=== PATIENT | male | born 1980 | race Caucasian/White ===

== ENCOUNTER 2016-08-16 16:49 | Emergency (ER) | payer SELFPAY ==
--- NOTE | 2016-08-16 16:57 | ER Document Report ---
ED Medical Screen (RME) - General Stated Complaint: INJURY TO CHEST MUSCLE Mode of Arrival: Ambulatory Information source: Patient Notes: Patient presents to the emergency department right-sided chest wall pain. Reports he was bench pressing weights and thinks he tore muscle. He reports he' s done this in the past. I have greeted and performed a rapid initial assessment of this patient. A comprehensive ED assessment and evaluation of the patient, analysis of test results and completion of the medical decision making process will be conducted by additional ED providers. TRAVEL OUTSIDE OF THE [place] IN LAST 30 DAYS: No - Related Data Allergies/Adverse Reactions: Penicillins Allergy (Verified 06/01/16 17:51) Past Medical History - Past Medical History Cardiac Medical History: Reports: Hx Hypertension GI Medical History: Reports: Hx Diverticulitis Past Surgical History: Reports: Hx Bowel Surgery - Colectomy, Hx Colostomy - Immunizations Hx Diphtheria, Pertussis, Tetanus Vaccination: Yes - 2014 Physical Exam - Vital signs Vitals: Temp Pulse Resp BP Pulse Ox 97.6 F 82 20 169/104 H 100 08/16/16 16:53 08/16/16 16:53 08/16/16 16:53 08/16/16 16:53 08/16/16 16:53 Course - Vital Signs Vital signs: Temp Pulse Resp BP Pulse Ox 97.6 F 82 20 169/104 H 100 08/16/16 16:53 08/16/16 16:53 08/16/16 16:53 08/16/16 16:53 08/16/16 16:53
[2016-08-16] MEDS ORDERED: KETOROLAC TROMETHAMINE 60 MG/2 ML SDV IM ONE (18:23)
[2016-08-16] MEDS ORDERED: LIDOCAINE 5% (700 MG) TRANSDERMAL ADH..PATCH TP ONE (18:23)
[2016-08-16] MEDS ORDERED: HYDROCODONE/ACETAMINOPHEN 5-325 MG 6 TAB/DSPK PO PRN (18:23)
[2016-08-16] MEDS ORDERED: HYDROCODONE/ACETAMINOPHEN 5-325 MG TABLET PO ONE (18:23)
--- NOTE | 2016-08-16 18:25 | ER Document Report ---
ED General - General Chief Complaint: Chest Wall Injury Stated Complaint: INJURY TO CHEST MUSCLE Mode of Arrival: Ambulatory Notes: Patient is a 36-year-old male without past medical history who presents with 2 days of severe right pectoralis pain. States this started after he was benching 305 pounds 2 days ago. 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 Has had similar symptoms in the past when performing the bench press. Describes the pain as a severe, constant pain and he has not done anything to try to improve the pain. Nothing worsens the pain other than trying to use the muscle. He has not seen his primary care physician regarding today's concerns. Denies any difficulty breathing, weakness, numbness, or difficulty moving either of the upper extremities. TRAVEL OUTSIDE OF THE [place] IN LAST 30 DAYS: No - Related Data Allergies/Adverse Reactions: Penicillins Allergy (Verified 08/16/16 16:56) Past Medical History - General Information source: Patient - Social History Smoking Status: Former Smoker Chew tobacco use (# tins/day): No Frequency of alcohol use: Occasional Drug Abuse: None Family History: Reviewed & Not Pertinent Patient has suicidal ideation: No Patient has homicidal ideation: No - Past Medical History Cardiac Medical History: Reports: Hx Hypertension Renal/ Medical History: Denies: Hx Peritoneal Dialysis GI Medical History: Reports: Hx Diverticulitis Past Surgical History: Reports: Hx Bowel Surgery - Colectomy, Hx Colostomy - Immunizations Hx Diphtheria, Pertussis, Tetanus Vaccination: Yes - 2014 Review of Systems - Review of Systems Notes: Constitutional: Negative for fever. HENT: Negative for sore throat. Eyes: Negative for visual changes. Cardiovascular: Negative for chest pain. Respiratory: Negative for shortness of breath. Gastrointestinal: Negative for abdominal pain, vomiting or diarrhea. Genitourinary: Negative for dysuria. Musculoskeletal: Negative for back pain. Skin: Negative for rash. Neurological: Negative for headaches, weakness or numbness. 10 point ROS negative except as marked above and in HPI. Physical Exam - Vital signs Vitals: Temp Pulse Resp BP Pulse Ox 97.6 F 82 20 169/104 H 100 08/16/16 16:53 08/16/16 16:53 08/16/16 16:53 08/16/16 16:53 08/16/16 16:53 Interpretation: Hypertensive Notes: PHYSICAL EXAMINATION: GENERAL: Well-appearing, well-nourished and in no acute distress. HEAD: Atraumatic, normocephalic. EYES: Pupils equal round and reactive to light, extraocular movements intact, sclera anicteric, conjunctiva are normal. ENT: nares patent, oropharynx clear without exudates. Moist mucous membranes. NECK: Normal range of motion, supple without lymphadenopathy LUNGS: Breath sounds clear to auscultation bilaterally and equal. No wheezes rales or rhonchi. HEART: Regular rate and rhythm without murmurs. 2+ radial pulses bilaterally ABDOMEN: Soft, nontender, normoactive bowel sounds. No guarding, no rebound. No masses appreciated. Musculoskeletal: Pain on palpation of the right lateral pectoralis muscle. U motor and sensory exam normal in the bilateral upper extremities NEUROLOGICAL: No focal neurological deficits. Moves all extremities spontaneously and on command. PSYCH: Normal mood, normal affect. SKIN: Warm, Dry, normal turgor, no rashes or lesions noted. Course - Re-evaluation Re-evalutation: 08/16/16 18:23 Presentation is most consistent with a right pectoral major tear based on exam and history. Patient is neurovascularly intact. 2+ radial pulses bilaterally. Lung sounds clear bilaterally. No direct trauma to the chest to suggest pneumothorax, rib fractures, or pulmonary contusions. Patient denies any additional symptoms beyond pain localized to his lateral pectoralis major. At this time will discharge with return precautions and follow-up recommendations. Verbal discharge instructions given a the bedside and opportunity for questions given. Medication warnings reviewed. Patient is in agreement with this plan and has verbalized understanding of return precautions and the need for primary care follow-up in the next 24-72 hours. - Vital Signs Vital signs: Temp Pulse Resp BP Pulse Ox 98.1 F 78 18 155/100 H 98 08/16/16 18:50 08/16/16 18:50 08/16/16 18:50 08/16/16 18:50 08/16/16 18:50 Discharge - Discharge Clinical Impression: Strain of right pectoralis muscle Qualifiers: Encounter type: initial encounter Qualified Code(s): S29.011A - Strain of muscle and tendon of front wall of thorax, initial encounter Condition: Good Disposition: HOME, SELF-CARE Additional Instructions: Your symptoms are consistent with a strain of your right pectoral major muscle. You should continue to take anti-inflammatories such as ibuprofen 600 mg every 6 hours. Continue to apply ice to the area is much your able. Follow-up with orthopedic surgery next 1 week for discussion of further management. Please return immediately if you develop weakness, numbness, spreading redness from the area, or any other symptoms that are concerning to you. Referrals: NAN HERNANDEZ MD [ACTIVE STAFF] - Follow up in 1 week
[2016-08-16 19:06] VITALS: BP 155/100
== END 2016-08-16 18:50 | disposition home or self-care (01) ==
LOC: ER 16:49
DX: S29.011A Strain of muscle and tendon of front wall of thorax, initial encounter (principal); R07.89 Other chest pain; X50.0XXA Overexertion from strenuous movement or load, initial encounter; Y93.B9 Activity, other involving muscle strengthening exercises; Z87.891 Personal history of nicotine dependence
CPT/HCPCS: 99282; 96372; J1885

== ENCOUNTER 2016-08-17 07:55 | Emergency (ER) | payer SELFPAY ==
[2016-08-17] MEDS ORDERED: MORPHINE SULFATE 10 MG/ML INJ IM ONE (08:25)
--- NOTE | 2016-08-17 09:03 | ER Document Report ---
[id number] PAIN Mode of Arrival: Ambulatory Information source: [facility], [facility] Records Notes: 36 yr old male presents with complaints of right pectoralis muscle pain after working out yesterday. pt margarita it is torn, was seen here yesterday treated with antiinflammatories and notes symptoms have not improved. TRAVEL OUTSIDE OF THE [place] IN LAST 30 DAYS: No - HPI Onset: Yesterday Onset/Duration: Sudden Quality of pain: Sharp Severity: Moderate Pain Level: 2 Associated symptoms: Body/muscle aches Exacerbated by: Movement Relieved by: Denies Similar symptoms previously: Yes Recently seen / treated by doctor: Yes - Related Data Allergies/Adverse Reactions: Penicillins Allergy (Verified 08/17/16 08:00) Past Medical History - Social History Smoking Status: Never Smoker Cigarette use (# per day): No Chew tobacco use (# tins/day): No Smoking Education Provided: No Frequency of alcohol use: None Drug Abuse: None Family History: Reviewed & Not Pertinent Patient has suicidal ideation: No Patient has homicidal ideation: No - Past Medical History Cardiac Medical History: Reports: Hx Hypertension Renal/ Medical History: Denies: Hx Peritoneal Dialysis GI Medical History: Reports: Hx Diverticulitis Past Surgical History: Reports: Hx Bowel Surgery - Colectomy, Hx Colostomy - Immunizations Hx Diphtheria, Pertussis, Tetanus Vaccination: Yes - 2014 Review of Systems - Review of Systems Notes: REVIEW OF SYSTEMS: CONSTITUTIONAL : Denies fever, chills, or sweats. Denies recent illness. EENT: Denies eye, ear, throat, or mouth pain or symptoms. Denies nasal or sinus congestion or discharge. Denies throat, tongue, or mouth swelling or difficulty swallowing. CARDIOVASCULAR: Denies chest pain. Denies palpitations or racing or irregular heart beat. Denies ankle edema. RESPIRATORY: Denies cough, cold, or chest congestion. Denies shortness of breath, difficulty breathing, or wheezing. GASTROINTESTINAL: Denies abdominal pain or distention. Denies nausea, vomiting , or diarrhea. Denies blood in vomitus, stools, or per rectum. Denies black, tarry stools. Denies constipation. GENITOURINARY: Denies difficulty urinating, painful urination, burning, frequency, blood in urine, or discharge. MUSCULOSKELETAL: right chest wall pain SKIN: Denies rash, lesions or sores. HEMATOLOGIC : Denies easy bruising or bleeding. LYMPHATIC: Denies swollen, enlarged glands. NEUROLOGICAL: Denies confusion or altered mental status. Denies passing out or loss of consciousness. Denies dizziness or lightheadedness. Denies headache. Denies weakness or paralysis or loss of use of either side. Denies problems with gait or speech. Denies sensory loss, numbness, or tingling. Denies seizures. PSYCHIATRIC: Denies anxiety or stress. Denies depression, suicidal ideation, or homicidal ideation. ALL OTHER SYSTEMS REVIEWED AND NEGATIVE. Dictation was performed using [employer] recognition software PHYSICAL EXAMINATION: GENERAL: Well-appearing, well-nourished and in no acute distress. HEAD: Atraumatic, normocephalic. EYES: Pupils equal round and reactive to light, extraocular movements intact, sclera anicteric, conjunctiva are normal. ENT: Nares patent, oropharynx clear without exudates. Moist mucous membranes. NECK: Normal range of motion, supple without lymphadenopathy LUNGS: Breath sounds clear to auscultation bilaterally and equal. No wheezes rales or rhonchi. HEART: Regular rate and rhythm without murmurs ABDOMEN: Soft, nontender, nondistended abdomen. No guarding, no rebound. No masses appreciated. Musculoskeletal: right nipple mildly lower appearing , mild swelling at the axillary region NEUROLOGICAL: Cranial nerves grossly intact. Normal speech, normal gait. Normal sensory, motor exams PSYCH: Normal mood, normal affect. SKIN: Warm, Dry, normal turgor, no rashes or lesions noted. Physical Exam - Vital signs Vitals: Temp Pulse Resp BP Pulse Ox 97.9 F 104 H 18 136/97 H 98 08/17/16 07:58 08/17/16 07:58 08/17/16 07:58 08/17/16 07:58 08/17/16 07:58 Course - Re-evaluation Re-evalutation: 08/17/16 09:50 I called and received permission to have MRI performed as this is not a life threatening emergency, pt will be sent to MRI for evaluation of his pain 08/17/16 14:29 Imaging was consistent with a strain there is no hematoma 1 tear noted. Patient was made aware of these findings and will continue with follow-up with orthopedics After performing a Medical Screening Examination, I estimate there is LOW risk for INTRACRANIAL HEMORRHAGE, UNSTABLE SPINE FRACTURE, CENTRAL CORD SYNDROME, CAUDA EQUINA, THORACIC AORTIC DISSECTION, PNEUMOTHORAX, PERFORATED BOWEL, RUPTURED ABDOMINAL AORTIC ANEURYSM, ACUTE TENDON RUPTURE, COMPARTMENT SYNDROME, or OPEN FRACTURE, thus I consider the discharge disposition reasonable. Also, there is no evidence or peritonitis, sepsis, or toxicity. The patient and I have discussed the diagnosis and risks, and we agree with discharging home to follow-up with their primary doctor with the understanding that symptoms and presentations can change. We also discussed returning to the Emergency Department immediately if new or worsening symptoms occur. We have discussed the symptoms which are most concerning (e.g., bloody stool, fever, changing or worsening pain, vomiting) that necessitate immediate return. - Vital Signs Vital signs: Temp Pulse Resp BP Pulse Ox 97.6 F 107 H 16 148/84 H 95 08/17/16 11:29 08/17/16 11:29 08/17/16 11:29 08/17/16 11:29 08/17/16 11:29 - Diagnostic Test Radiology reviewed: Image reviewed, Reports reviewed Discharge - Discharge Clinical Impression: Chest wall pain Strain of right pectoralis muscle Qualifiers: Encounter type: initial encounter Qualified Code(s): S29.011A - Strain of muscle and tendon of front wall of thorax, initial encounter Condition: Stable Disposition: HOME, SELF-CARE Instructions: Anti-Inflammatory Medication ([facility]) Prescriptions: Diazepam [Valium 5 mg Tablet] 5 mg PO QIDP PRN #15 tablet PRN Reason: Oxycodone HCl/Acetaminophen [Percocet 5-325 mg Tablet] 1 - 2 tab PO Q4H PRN #10 tablet PRN Reason: Referrals: JANEY MCCABE MD [ACTIVE STAFF] - Follow up tomorrow
[2016-08-17] MEDS ORDERED: HYDROMORPHONE HCL INJ/PF 2 MG/ML AMPULE IM ONE (09:11)
[2016-08-17 11:44] VITALS: BP 148/84
== END 2016-08-17 11:29 | disposition home or self-care (01) ==
LOC: ER 07:55
DX: S29.011A Strain of muscle and tendon of front wall of thorax, initial encounter (principal); R07.89 Other chest pain; X58.XXXA Exposure to other specified factors, initial encounter; Y93.B9 Activity, other involving muscle strengthening exercises
CPT/HCPCS: 99284; 96372; 71550; J2270; J1170

== ENCOUNTER 2016-08-19 15:16 | Emergency (ER) | payer SELFPAY ==
[2016-08-19 15:28] VITALS: BP 140/108
[2016-08-19] MEDS ORDERED: OXYCODONE-ACETAMINOPHEN 5-325 MG TABLET PO ONE (15:28)
[2016-08-19] MEDS ORDERED: ONDANSETRON 4 MG TAB.RAPDIS PO ONE (15:28)
--- NOTE | 2016-08-19 15:29 | ER Document Report ---
ED Medical Screen (RME) - General Stated Complaint: POSSIBLE TORN MUSCLE Time seen by provider: 15:24 Mode of Arrival: Ambulatory Information source: Patient Notes: 36-year-old male bends pressing 240 pounds this morning felt his pectoral muscle rib away from chest wall area. Similar happened 5 years ago so he knew what happened. He has his arm in a sling at this time. Is complaining of elbow pain, shoulder pain, and bicep pain and the pain is radiating into his scapula. TRAVEL OUTSIDE OF THE [place] IN LAST 30 DAYS: No - Related Data Allergies/Adverse Reactions: Penicillins Allergy (Verified 08/17/16 08:00) Past Medical History - Past Medical History Cardiac Medical History: Reports: Hx Hypertension Renal/ Medical History: Denies: Hx Peritoneal Dialysis GI Medical History: Reports: Hx Diverticulitis Past Surgical History: Reports: Hx Bowel Surgery - Colectomy, Hx Colostomy - Immunizations Hx Diphtheria, Pertussis, Tetanus Vaccination: Yes - 2014
--- NOTE | 2016-08-19 16:41 | ER Document Report ---
ED Extremity Problem, Upper - General Chief Complaint: Arm Injury Stated Complaint: POSSIBLE TORN MUSCLE Mode of Arrival: Ambulatory Notes: This is the third visit in 4 days for this patient complaining of pain in the right lateral chest and arm that he attributes to carrying his pectoralis muscle from bench pressing too heavy weights. 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 Patient is 36 years old which doesn't seem to have a period Patient was seen here originally on the and at that time was advised to take [id number] NSAIDs. He returned on the complaining of the same problem and at that time had an MRI done which showed some edema of the pectoralis muscle that was consistent with a strain, but both attachments of the sore appeared to be intact. The patient was given Percocet pain medications , but he says that not helping his pain. I am not sure why the patient decides to continue to go back to participating in this activity which is causing him injury. The patient's MRI reading mentioned a cyst in the humeral head. Patient says today while he was bench pressing, his right shoulder came out of socket and he was able to get it back in. He attributes this to the cyst that was seen on his MRI. He does not indicate that he's had previous dislocations of that shoulder. TRAVEL OUTSIDE OF THE [place] IN LAST 30 DAYS: No - Related Data Allergies/Adverse Reactions: Penicillins Allergy (Verified 08/17/16 08:00) Past Medical History - General Information source: Patient - Social History Smoking Status: Never Smoker Chew tobacco use (# tins/day): No Frequency of alcohol use: Social Drug Abuse: None Family History: Reviewed & Not Pertinent Patient has suicidal ideation: No Patient has homicidal ideation: No - Past Medical History Cardiac Medical History: Reports: Hx Hypertension GI Medical History: Reports: Hx Diverticulitis, Other - Patient says he had a diagnosis of colon cancer and had 10 inches of his colon removed through a laparoscopic surgical procedure through the umbilicus in 2011. Past Surgical History: Reports: Hx Bowel Surgery - Colectomy, Hx Colostomy - Immunizations Hx Diphtheria, Pertussis, Tetanus Vaccination: Yes - 2014 Review of Systems - Review of Systems Notes: REVIEW OF SYSTEMS: CONSTITUTIONAL : Denies fever. EENT: Denies eye, ear, nose or mouth or throat pain or other symptoms. CARDIOVASCULAR: See history of present illness. RESPIRATORY: Denies cough, chest congestion, or shortness of breath. GASTROINTESTINAL: Denies abdominal pain or nausea, vomiting, or diarrhea. GENITOURINARY: Denies difficulty or painful urinating, urinary frequency, blood in urine. MUSCULOSKELETAL: Denies back or neck pain. Complains of pain in the right shoulder joint and of the proximal right upper arm, inner aspect. Full range of motion, passively by me. SKIN: Denies rash or skin lesions. NEUROLOGICAL: Denies LOC or altered mental status. Denies headache. Denies sensory loss or motor deficits. ALL OTHER SYSTEMS REVIEWED AND NEGATIVE. Physical Exam - Vital signs Vitals: Temp Pulse Resp BP Pulse Ox 98.2 F 118 H 16 140/108 H 97 08/19/16 15:23 08/19/16 15:23 08/19/16 15:23 08/19/16 15:23 08/19/16 15:23 Interpretation: Normal, Tachycardic - 118 - Notes Notes: PHYSICAL EXAMINATION: GENERAL: Anxious and complaining of severe pain in right chest and right upper arm.. HEAD: Atraumatic, normocephalic. NECK: Normal range of motion, supple. LUNGS: Breath sounds clear and equal bilaterally. Right chest reveals a defect , depression in the superior, lateral aspect of the pectoralis muscle which is tender, but no hematoma or other soft tissue findings. Patient has some superficial bruises of the proximal inner right upper arm. Couple of IV sites in his right antecubital fossa. No evidence of venous obstruction. HEART: Regular rate and rhythm without murmurs. ABDOMEN: Soft, nontender. No guarding or rebound. BACK: No tenderness throughout entire back. EXTREMITIES: See above for findings of right shoulder and arm. Otherwise Normal range of motion without pain. NEUROLOGICAL: Normal speech, normal gait. Normal sensory, motor, and reflex exams. Awake, alert, and oriented x3. Cranial nerves normal. PSYCH: Normal mood, normal affect. SKIN: Warm, dry, no rashes. Course - Re-evaluation Re-evalutation: 08/19/16 20:38 I have concerns about a patient who is in our emergency department 3 days out of the last 4 and who continues to return to the activity which is producing his injury that's bringing him to the emergency department. Also, when I told the patient was going to give him Ultram, he asked what is that? I explained to him that it was tramadol, a pain medication not in the same family as Percocet, which the patient says is not working. He escamilla me that Ultram will help his pain. Then, he asked me what Ultram is? After telling me it won't work. I declined to give the patient anything stronger for pain. He has a sling to wear on the right arm. He's been advised to follow-up with orthopedics and a referral was given. - Vital Signs Vital signs: Temp Pulse Resp BP Pulse Ox 98.2 F 118 H 16 140/108 H 97 08/19/16 15:23 08/19/16 15:23 08/19/16 15:23 08/19/16 15:23 08/19/16 15:23 Discharge - Discharge Clinical Impression: Muscle strain of right shoulder Qualifiers: Encounter type: subsequent encounter Qualified Code(s): S46.911D - Strain of unspecified muscle, fascia and tendon at shoulder and upper arm level, right arm , subsequent encounter Strain of right pectoralis muscle Qualifiers: Encounter type: subsequent encounter Qualified Code(s): S29.011D - Strain of muscle and tendon of front wall of thorax, subsequent encounter Condition: Stable Disposition: HOME, SELF-CARE Additional Instructions: Shoulder Injury You have injured your shoulder. This usually results from stretching or tearing of the tendons during trauma. Time and protection are required in order to heal properly. Many injuries are quite disabling, and should be taken seriously. Initial treatment includes cold packs and a sling to rest the shoulder. The physician has assessed the seriousness of your injury, and has outlined a treatment plan. Understand that this treatment may change, depending on how you progress. If a re-examination was recommended, it is important that you follow up as instructed. Some shoulder injuries (such as partial tear of the rotator cuff) are only suspected after you've failed to improve. Call us if there's severe pain, numbness, or loss of function. MUSCLE STRAIN right shoulder and right pectoral muscle: You have strained a muscle -- torn the fibers within the muscle. This often occurs with strenuous exertion, or during an injury that suddenly stretches the muscle. The seriousness of a strain varies. Some strains heal within days, others cause problems for months. X-rays cannot show a muscle strain. X-rays are taken only if symptoms suggest that a fracture could be present. The usual treatment of a muscle strain is rest and ice packs. Sometimes, a sling, splint, or crutches may be necessary to rest the muscle. The muscle can be used again once pain subsides. Severe strains require a special exercise and stretching program to prevent permanent stiffness and disability. Your doctor will advise you if this will be necessary. Call the doctor immediately if pain or swelling becomes severe, or if numbness or discoloration develop. USE OF TYLENOL (ACETAMINOPHEN): Acetaminophen may be taken for pain relief or fever control. It's much safer than aspirin, offering a wider range of "safe" dosages. It is safe during . Some brand names are Tylenol, Panadol, Datril, Anacin 3, Tempra, and Liquiprin. Acetaminophen can be repeated every four hours. The following are maximum recommended dosages: WEIGHT Dose Drops Elixir Chewable( 80mg) (LBS.) drprs=droppers tsp=teaspoon >89 pounds or adults 650 mg to 900 mg Acetaminophen can be repeated every four hours. Maximum dose not to exceed 4000 mg a day. These maximum recommended dosages are slightly higher than the dosages written on the product container, but these dosages are very safe and below the toxic dosage for acetaminophen. ICE PACKS: Apply ice packs frequently against the painful area. Many different schedules are recommended, such as "20 minutes on, 20 minutes off" or "one hour ice, two hours rest." If you need to work, you may need to go longer between ice treatments. You should plan to have the area ice packed AT LEAST one fourth of the time. The ice should be applied over the wrap, tape, or splint, or over a layer of cloth -- not directly against the skin. Some ice bags have a built-in cloth and can be put directly on the skin. WARM PACKS: After approximately two days, apply gentle heat (such as a heating pad or hot water bottle) for about 20 to 30 minutes about every two hours -- at least four times daily. Warmth and elevation will help you make a more rapid recovery , and will ease the pain considerably. Do not use HOT heat, and never apply heat for longer than 30 minutes. The continuous heat can invisibly damage skin and muscles -- even when no burn is seen on the surface. Damaged muscles can make you MORE sore. Ultram Ultram is an excellent drug for pain relief. It is not a narcotic, but it works in a similar way. Ultram can take up to two hours for full effect. Although not addicting, Ultram is best avoided in patients with a history of drug abuse. Ultram should not be used with alcohol, sleeping pills, or narcotics. If you're prone to seizures, Ultram can make you more likely to have a seizure. Ultram can be hazardous when combined with MAO-inhibitor antidepressants (such as Nardil or Parnate). Be sure your doctor is aware of all medicines you are taking. Persons with severe liver or kidney disease should increase the time between doses of Ultram. Discuss this with your doctor if you're uncertain. Side effects of Ultram can include dizziness, nausea, constipation, sleepiness, and itching. (These side effects are also seen with narcotic pain medicines.) Please call your doctor if you have other disturbing effects. FOLLOW-UP CARE: If you have been referred to a physician for follow-up care, call the physician s office for an appointment as you were instructed or within the next two days. If you experience worsening or a significant change in your symptoms, notify the physician immediately or return to the Emergency Department at any time for re-evaluation. You should stop working out and doing heavy weights on the bench press. Make an appointment to see the local orthopedic doctors for reevaluation and recommendations for care. Prescriptions: Tramadol HCl [Ultram 50 mg Tablet] 50 mg PO Q4HP PRN #15 tab PRN Reason: Referrals: JANEY MCCABE MD [ACTIVE STAFF] - Follow up as needed
== END 2016-08-19 16:56 | disposition home or self-care (01) ==
LOC: ER 15:16
DX: S46.911D Strain of unspecified muscle, fascia and tendon at shoulder and upper arm level, right arm, subsequent encounter (principal); S29.011D Strain of muscle and tendon of front wall of thorax, subsequent encounter; X50.0XXD Overexertion from strenuous movement or load, subsequent encounter
CPT/HCPCS: 99283; S0119

== ENCOUNTER 2016-09-11 15:19 | Emergency (ER) | payer SELFPAY ==
[2016-09-11 15:38] VITALS: BP 132/87
--- NOTE | 2016-09-11 15:44 | ER Document Report ---
ED Medical Screen (RME) - General Stated Complaint: HAND PAIN Notes: Patient is a 28-year-old male presents emergency Department complaining of right hand pain. Patient states that he was moving a couch when he had it all down on top of his right hand. Admits to severe pain in the right hand as well as swelling. obvious swelling. Otherwise denies any other pain. I have greeted and performed a rapid initial assessment of this patient. A comprehensive ED assessment and evaluation of the patient, analysis of test results and completion of the medical decision making process will be conducted by additional ED providers. TRAVEL OUTSIDE OF THE [place] IN LAST 30 DAYS: No - Related Data Allergies/Adverse Reactions: Penicillins Allergy (Verified 08/17/16 08:00) Past Medical History - Past Medical History Cardiac Medical History: Reports: Hx Hypertension Renal/ Medical History: Denies: Hx Peritoneal Dialysis GI Medical History: Reports: Hx Diverticulitis Past Surgical History: Reports: Hx Bowel Surgery - Colectomy, Hx Colostomy - Immunizations Hx Diphtheria, Pertussis, Tetanus Vaccination: Yes - 2014 Physical Exam - Vital signs Vitals: Temp Pulse Resp BP Pulse Ox 98.8 F 120 H 20 132/87 H 98 09/11/16 15:34 09/11/16 15:34 09/11/16 15:34 09/11/16 15:34 09/11/16 15:34 Course - Vital Signs Vital signs: Temp Pulse Resp BP Pulse Ox 98.8 F 120 H 20 132/87 H 98 09/11/16 15:34 09/11/16 15:34 09/11/16 15:34 09/11/16 15:34 09/11/16 15:34
[2016-09-11] MEDS ORDERED: OXYCODONE-ACETAMINOPHEN 5-325 MG TABLET PO ONE (15:46)
--- NOTE | 2016-09-11 18:08 | ER Document Report ---
HPI - HPI Patient complains to provider of: wrist pain Pain Level: 5 Context: Patient is a 28-year-old male presents emergency Department complaining of wrist pain. Patient states that today he was helping a friend and his friend dropped any traumatic accident and landed on his right hand. Is complaining of swelling and pain at the site he has full sensation and guarding with range of motion due to pain. Mild swelling. Otherwise denies any other medical issues - DERM Skin Color: Normal Past Medical History - General Information source: Patient - Social History Smoking Status: Never Smoker Chew tobacco use (# tins/day): No Frequency of alcohol use: Social Drug Abuse: None Family History: Reviewed & Not Pertinent Patient has suicidal ideation: No Patient has homicidal ideation: No - Past Medical History Cardiac Medical History: Reports: Hx Hypertension Renal/ Medical History: Denies: Hx Peritoneal Dialysis GI Medical History: Reports: Hx Diverticulitis Past Surgical History: Reports: Hx Bowel Surgery - Colectomy, Hx Colostomy - Immunizations Hx Diphtheria, Pertussis, Tetanus Vaccination: Yes - 2014 [facility] Provider Document - CONSTITUTIONAL Agree With Documented VS: Yes Exam Limitations: No Limitations General Appearance: WD/WN, Mild Distress - INFECTION CONTROL TRAVEL OUTSIDE OF THE [place] IN LAST 30 DAYS: No - RESPIRATORY O2 Sat by Pulse Oximetry: 98 - CARDIOVASCULAR Pulses: Normal: Radial - cap refill <2 seconds - MUSCULOSKELETAL/EXTREMETIES Musculoskeletal/Extremeties: Tender, No Edema - no pitting edema but soft tissue swelling Notes: able to move his fingers but due to pain is guarding against full ROM - NEURO Level of Consciousness: Awake, Alert, Appropriate Motor/Sensory: No Motor Deficit, No Sensory Deficit - DERM Integumentary: Warm, Dry, No Rash. negative: Laceration Course - Re-evaluation Re-evalutation: 09/11/16 18:04 Patient is a 36-year-old male who presents after he had an injury on the couch. And wrist x-rays did not reveal any acute dislocation or fracture, has full sensation, good blood flow and able to move his wrist but with pain. Will discharge patient home with cock-up splint that he is able take it off for showering and his combativeness PCP as needed - Vital Signs Vital signs: Temp Pulse Resp BP Pulse Ox 98.8 F 120 H 20 132/87 H 98 09/11/16 15:34 09/11/16 15:34 09/11/16 15:34 09/11/16 15:34 09/11/16 15:34 Discharge - Discharge Clinical Impression: Wrist pain Qualifiers: Laterality: right Qualified Code(s): M25.531 - Pain in right wrist Condition: Good Disposition: HOME, SELF-CARE Instructions: Splint Precautions ([facility]), Ice & Elevation ([facility]) Prescriptions: Oxycodone HCl/Acetaminophen [Percocet 5-325 mg Tablet] 1 - 2 tab PO Q4HP PRN # 15 tablet PRN Reason: Ibuprofen [Motrin 800 mg Tablet] 800 mg PO Q8HP PRN #30 tab PRN Reason: Forms: Return to Work, Restricted Release Referrals: [facility] [NO LOCAL MD] - Follow up as needed
== END 2016-09-11 18:40 | disposition home or self-care (01) ==
LOC: ER 15:19
DX: M25.531 Pain in right wrist (principal); M79.89 Other specified soft tissue disorders; W20.8XXA Other cause of strike by thrown, projected or falling object, initial encounter; Y93.E6 Activity, residential relocation; I10 Essential (primary) hypertension
CPT/HCPCS: 99283; 73120; 73100; L3984

== ENCOUNTER 2017-04-10 07:37 | Emergency (ER) | payer SELFPAY ==
[2017-04-10] MEDS ORDERED: MAG HYDROX/AL HYDROX/SIMETH SUSP 30 ML UDCUP PO ONE (07:47)
[2017-04-10] MEDS ORDERED: METOCLOPRAMIDE HCL ORAL SOLN 10 MG/10 ML UDCUP PO ONE (07:47)
[2017-04-10] MEDS ORDERED: LIDOCAINE 2% VISCOUS SOLN 20 ML UDCUP PO ONE (07:47)
[2017-04-10] MEDS ORDERED: PANTOPRAZOLE SODIUM 40 MG VIAL IV ONE (07:47)
[2017-04-10] MEDS ORDERED: NORMAL SALINE 1000 ML 1,000 ML IV ONE (07:50)
--- NOTE | 2017-04-10 07:57 | ER Document Report ---
ED Cardiac - General Chief Complaint: Chest Wall Pain Stated Complaint: CHEST PAIN Time Seen by Provider: 04/10/17 07:41 Notes: 36-year-old male with history of IV drug abuse, recently relapsing with last use 2 days ago presents with chest pain. States it feels like his heart is squeezing and he has sharp pain in the middle of the chest radiating through to his back. It helps to hold his chest wall. The pain is severe enough it keeps him from getting a deep breath in. There is no new cough cold symptoms or fever. Patient denies any trauma. Patient states the symptoms started approximately at midnight got slightly better and then worsened again and have been fairly constant. He tried to drink milk but this did not seem to help. TRAVEL OUTSIDE OF THE [place] IN LAST 30 DAYS: No - Related Data Allergies/Adverse Reactions: Penicillins Allergy (Verified 04/10/17 09:35) Past Medical History - Social History Smoking Status: Current Every Day Smoker Family History: Reviewed & Not Pertinent - Past Medical History Cardiac Medical History: Reports: Hx Hypertension Renal/ Medical History: Denies: Hx Peritoneal Dialysis GI Medical History: Reports: Hx Diverticulitis Past Surgical History: Reports: Hx Bowel Surgery - Colectomy, Hx Colostomy - Immunizations Hx Diphtheria, Pertussis, Tetanus Vaccination: Yes - 2014 Review of Systems - Review of Systems -: Yes All other systems reviewed and negative Physical Exam - Vital signs Vitals: Temp 98.7 F 04/10/17 07:45 - Notes Notes: Physical Exam: GENERAL: VS as per nursing doc. well-nourished, nontoxic-appearing. Splinting and holding chest. Appears anxious. HEAD: Atraumatic, normocephalic. EYES: Pupils equal round and reactive to light, extraocular movements intact, sclera anicteric, no conjunctival injection or discharge. ENT: Nares patent, oropharynx clear without exudates. Moist mucous membranes. NECK: Normal range of motion, supple without lymphadenopathy. No JVD. No Carotid Bruits. LUNGS: Breath sounds coarse to auscultation bilaterally and equal. No wheezes rales or rhonchi. There is some reproducibility of the chest wall tenderness in the lower sternal and parasternal region HEART: Normal S1S2. Regular rate and rhythm without murmurs. Equal peripheral pulses including radial pulses. No muffled heart sounds. ABDOMEN: Soft, non-tender. No pulsatile mass. EXTREMITIES: Normal range of motion. No calf tenderness. Negative Homans. No edema. Old ecchymosis noted to right anterior thigh NEUROLOGICAL: Cranial nerves grossly intact. Normal speech. Normal sensory and motor exams. No gross cerebellar abnormalities. PSYCH: Normal mood, normal affect. Anxious, poor eye contact SKIN: Warm, dry, no cyanosis, no splinter hemorrhages. Cap refill < 2 sec. Course - Re-evaluation Re-evalutation: 04/10/17 11:06 The patient was resting comfortably sleeping without any breathing difficulty or irregularity. I woke him and discussed results with him including abnormalities, elevated CPK white count and LFTs. Clinically his symptoms seem to be more musculoskeletal. I do not see evidence of pericarditis endocarditis pericardial effusion, pulmonary embolus or cardiac ischemia. No evidence of intrathoracic abnormality, esophageal perforation. Recommended to him NSAIDs which we will prescribe. Also recommended lifestyle modifications and recommendation for repeat laboratory testing to ensure normalization of laboratory findings.. 04/10/17 11:35 Patient's temperature at discharge is 99.8. I do not hear a murmur but he would always be at risk for endocarditis which I had discussed with him. He will return if he develops increasing temperature. I do not see other signs of infection. His lungs were clear. A track shanice near his right antecubital fossa shows no signs of infection. He does not really have any particular spine pain to suggest osteo or discitis. - Vital Signs Vital signs: Temp Pulse Resp BP Pulse Ox 98.7 F 25 H 122/92 H 96 04/10/17 07:45 04/10/17 10:01 04/10/17 11:01 04/10/17 11:01 - Laboratory Result Diagrams: 04/10/17 08:00 04/10/17 08:00 Laboratory results interpreted by me: 04/10/17 04/10/17 08:00 08:00 WBC 13.8 H Seg Neutrophils % 81.7 H Lymphocytes % 9.7 L Absolute Neutrophils 11.3 H AST 160 H ALT 353 H Creatine Kinase 609 H - EKG Interpretation by Tx EKG shows normal: Sinus rhythm - Heart rate 99, no clear ischemia, very mild nonspecific ST abnormalities. QRS is normal. Discharge - Discharge Clinical Impression: Chest pain Condition: Good Disposition: HOME, SELF-CARE Instructions: Chest Wall Pain ([facility]) Additional Instructions: Return for emergency or concern, development of fever. Prescriptions: Naproxen Sodium [Anaprox Ds] 550 mg PO BID PRN #20 tablet PRN Reason: For Pain Referrals: [facility] [Provider Group] - Follow up in 3-5 days
[2017-04-10 08:09] LABS: ABSOLUTE BASOPHILS # (AUTO) 0.1 10^3/uL (0.0-0.2); ABSOLUTE EOSINOPHILS # (AUTO) 0.1 10^3/uL (0.0-0.6); ABSOLUTE LYMPHOCYTES (AUTO) 1.3 10^3/uL (0.5-4.7); ABSOLUTE MONOCYTES (AUTO) 1.1 10^3/uL (0.1-1.4); ABSOLUTE NEUT (AUTO) 11.3 10^3/uL (1.7-8.2); BASOPHILS % (AUTO) 0.4 % (0-2); EOSINOPHILS % (AUTO) 0.6 % (0-6); HEMATOCRIT 45.6 % (37.9-51.0); HEMOGLOBIN 15.8 g/dL (13.5-17.0); HGB HCT DIFFERENCE 1.8; LYMPHOCYTES % (AUTO) 9.7 % (13-45); MEAN CORPUSCULAR HEMOGLOBIN 29.5 pg (27.0-33.4); MEAN CORPUSCULAR HGB CONC 34.6 g/dL (32.0-36.0); MEAN CORPUSCULAR VOLUME 85 fl (80-97); MONOCYTES % (AUTO) 7.6 % (3-13); RED BLOOD COUNT 5.36 10^6/uL (4.35-5.55); RED CELL DISTRIBUTION WIDTH 13.7 % (11.5-14.0); SEGMENTED NEUTROPHILS % (AUTO) 81.7 % (42-78); WHITE BLOOD COUNT 13.8 10^3/uL (4.0-10.5)
[2017-04-10 08:15] LABS: PROTHROMBIN TIME 12.8 SEC (11.4-15.4)
[2017-04-10 08:27] LABS: ALANINE AMINOTRANSFERASE 353 U/L (21-72); ALBUMIN 3.8 g/dL (3.5-5.0); ALKALINE PHOSPHATASE 48 U/L (38-126); ASPARTATE AMINO TRANSFERASE 160 U/L (17-59); BILIRUBIN,DIRECT 0.4 mg/dL (0.0-0.4); BLOOD UREA NITROGEN 19 mg/dL (7-20); CALCIUM 9.5 mg/dL (8.4-10.2); CARBON DIOXIDE 25 mmol/L (22-30); CREATINE KINASE 609 U/L (55-170); CREATININE RESULT 0.82 mg/dL (0.52-1.25); GLUCOSE 107 mg/dL (75-110); POTASSIUM 4.3 mmol/L (3.6-5.0); SODIUM 140.2 mmol/L (137-145); TOTAL PROTEIN 6.7 g/dL (6.3-8.2)
[2017-04-10 08:29] LABS: ANION GAP 10 (5-19); CHLORIDE 105 mmol/L (98-107)
[2017-04-10 08:38] LABS: CREATINE KINASE MB 2.61 ng/mL (<4.55)
[2017-04-10 08:39] LABS: TROPONIN I < 0.012 ng/mL
--- NOTE | 2017-04-10 09:35 | RADIOLOGY REPORT (SQ) ---
EXAM DESCRIPTION: CTA CHEST COMPLETED DATE/TIME: 04/10/2017 8:49 am REASON FOR STUDY: Pleuritic CP COMPARISON: None. TECHNIQUE: CT scan of the chest performed using helical scanning technique with dynamic intravenous contrast injection. Images reviewed with lung, soft tissue and bone windows. Reconstructed coronal and sagittal MPR images reviewed. Additional 3 dimensional post-processing performed to develop Maximal Intensity Projection images (AZ P). All images stored on PACS. All CT scanners at this facility use dose modulation, iterative reconstruction, and/or weight based d osing when appropriate to reduce radiation dose to as low as reasonably achievable (ALARA). [facility]: Dose Right [facility]: CareDose [facility]: Dose Right [facility]: Teradose 4D [facility]: Priceza CONTRAST TYPE AND DOSE: contrast/concentration: Isovue 370.00 mg/ml; Total Contrast Delivered: 75.0 ml; Total Saline Delivered: 94.9 ml Contrast bolus optimized for the pulmonary arteries. Not diagnostic for the aorta. RENAL FUNCTION: BUN 19 creatinine 0.8 RADIATION DOSE: Up-to-date CT equipment and radiation dose reduction techniques were employed. CTDIv ol: 13.2 - 29.6 mGy. DLP: 1029 mGy-cm. . LIMITATIONS: Patient motion. FINDINGS: LUNGS AND PLEURA: No masses, infiltrates, pneumothorax. No pleural effusions, calcificati ons. AORTA AND GREAT VESSELS: No aneurysm. Contrast bolus not optimized for the aorta. HEART: No pericardial effusion. No significant coronary artery calcifications. PULMONARY ARTERIES: No emboli visualized in the main pulmonary arteries or the segmental branches. HILAR AND MEDIASTINAL STRUCTURES: No identified masses or abnormal nodes. HARDWARE: None in the chest. UPPER ABDOMEN: No significant findings. Limited exam. THYROID AND OTHER SOFT TISSUES: No masses. No adenopathy. BONES: No acute or significant finding. 3D MIPS: Confirm above findings. OTHER: No other significant finding. IMPRESSION: No evidence of pulmonary embolus. COMMENT: Quality ID # [id number]: Final reports with documentation of one or more dose reduction techniques (e.g., Automated exposure control, adjustment of the mA and/or kV according to patient size, use of iterative reconstruction technique) TECHNICAL DOCUMENTATION: JOB ID: [id number] [employer]- All Rights Reserved
[2017-04-10 11:08] VITALS: BP 122/92
--- NOTE | 2017-04-10 20:13 | EKG REPORT ---
SEVERITY:- NORMAL ECG - SINUS RHYTHM : Confirmed by: Adeline Eli 10-Apr-2017 20:12:20
== END 2017-04-10 11:50 | disposition home or self-care (01) ==
LOC: ER 07:37
DX: R07.89 Other chest pain (principal); F41.9 Anxiety disorder, unspecified; I10 Essential (primary) hypertension; F17.200 Nicotine dependence, unspecified, uncomplicated; D72.829 Elevated white blood cell count, unspecified; R79.89 Other specified abnormal findings of blood chemistry; R74.8 Abnormal levels of other serum enzymes; R94.31 Abnormal electrocardiogram [ECG] [EKG]; Z88.0 Allergy status to penicillin
CPT/HCPCS: 93005; 99285; 96361; 96374; 36415; 82553; 82550; 85025; 85610; 80053; 84484; 71275; 93010; J3490; S0164; J7030

== ENCOUNTER 2017-04-10 14:48 | Emergency (ER) | payer SELFPAY ==
[2017-04-10] MEDS ORDERED: OXYCODONE-ACETAMINOPHEN 5-325 MG TABLET PO ONE (15:23)
--- NOTE | 2017-04-10 15:23 | ER Document Report ---
ED Medical Screen (RME) - General Chief Complaint: Flank Pain Stated Complaint: BACK PAIN Time Seen by Provider: 04/10/17 15:20 Notes: Patient states he was here yesterday for chest and back pain. He states today he developed a new pain that is in his left chest and radiates to his back. He states it is severe. Is making him feel short of breath. TRAVEL OUTSIDE OF THE [place] IN LAST 30 DAYS: No - Related Data Allergies/Adverse Reactions: Penicillins Allergy (Verified 04/10/17 15:22) Past Medical History - Past Medical History Cardiac Medical History: Reports: Hx Hypertension Renal/ Medical History: Denies: Hx Peritoneal Dialysis GI Medical History: Reports: Hx Diverticulitis Past Surgical History: Reports: Hx Bowel Surgery - Colectomy, Hx Colostomy - Immunizations Hx Diphtheria, Pertussis, Tetanus Vaccination: Yes - 2014 Physical Exam - Vital signs Vitals: Temp Pulse Resp BP Pulse Ox 98.9 F 85 20 129/69 H 97 04/10/17 14:58 04/10/17 14:58 04/10/17 14:58 04/10/17 14:58 04/10/17 14:58 Course - Vital Signs Vital signs: Temp Pulse Resp BP Pulse Ox 98.9 F 85 20 129/69 H 97 04/10/17 14:58 04/10/17 14:58 04/10/17 14:58 04/10/17 14:58 04/10/17 14:58
--- NOTE | 2017-04-10 16:15 | RADIOLOGY REPORT (SQ) ---
EXAM DESCRIPTION: CHEST PA/LAT COMPLETED DATE/TIME: 04/10/2017 4:06 pm REASON FOR STUDY: chest pain COMPARISON: 08/28/2015 EXAM PARAMETERS: NUMBER OF VIEWS: two views TECHNIQUE: Digital Frontal and Lateral radiographic views of the chest acquired. RADIATION DOSE: NA LIMITATIONS: none FINDINGS: LUNGS AND PLEURA: There is ill-defined opacification in the medial aspect of each lung bas e. MEDIASTINUM AND HILAR STRUCTURES: No masses or contour abnormalities. HEART AND VASCULAR STRUCTURES: Heart normal size. No evidence for failure. BONES: No acute findings. HARDWARE: None in the chest. OTHER: No other significant finding. IMPRESSION: Cannot exclude limited infiltrate in either lower lobe. TECHNICAL DOCUMENTATION: JOB ID: [id number] [employer]- All Rights Reserved
[2017-04-10] MEDS ORDERED: KETOROLAC TROMETHAMINE 60 MG/2 ML SDV IM ONE (16:36)
[2017-04-10 16:44] LABS: ABSOLUTE BASOPHILS # (AUTO) 0.1 10^3/uL (0.0-0.2); ABSOLUTE LYMPHOCYTES (AUTO) 1.3 10^3/uL (0.5-4.7); ABSOLUTE MONOCYTES (AUTO) 1.4 10^3/uL (0.1-1.4); ABSOLUTE NEUT (AUTO) 12.8 10^3/uL (1.7-8.2); BASOPHILS % (AUTO) 0.6 % (0-2); EOSINOPHILS % (AUTO) 0.1 % (0-6); HEMATOCRIT 45.6 % (37.9-51.0); HEMOGLOBIN 15.3 g/dL (13.5-17.0); HGB HCT DIFFERENCE 0.3; LYMPHOCYTES % (AUTO) 8.6 % (13-45); MEAN CORPUSCULAR HEMOGLOBIN 28.8 pg (27.0-33.4); MEAN CORPUSCULAR HGB CONC 33.6 g/dL (32.0-36.0); MEAN CORPUSCULAR VOLUME 86 fl (80-97); MONOCYTES % (AUTO) 8.9 % (3-13); RED BLOOD COUNT 5.32 10^6/uL (4.35-5.55); RED CELL DISTRIBUTION WIDTH 13.8 % (11.5-14.0); SEGMENTED NEUTROPHILS % (AUTO) 81.8 % (42-78); WHITE BLOOD COUNT 15.6 10^3/uL (4.0-10.5)
[2017-04-10 16:53] LABS: ALANINE AMINOTRANSFERASE 324 U/L (21-72); ALBUMIN 3.9 g/dL (3.5-5.0); ALKALINE PHOSPHATASE 53 U/L (38-126); ANION GAP 10 (5-19); ASPARTATE AMINO TRANSFERASE 123 U/L (17-59); BILIRUBIN,DIRECT 0.5 mg/dL (0.0-0.4); BILIRUBIN,TOTAL 1.3 mg/dL (0.2-1.3); BLOOD UREA NITROGEN 14 mg/dL (7-20); CALCIUM 9.3 mg/dL (8.4-10.2); CARBON DIOXIDE 26 mmol/L (22-30); CHLORIDE 100 mmol/L (98-107); CREATININE RESULT 0.81 mg/dL (0.52-1.25); GLUCOSE 110 mg/dL (75-110); POTASSIUM 4.1 mmol/L (3.6-5.0); SODIUM 136.4 mmol/L (137-145); TOTAL PROTEIN 6.8 g/dL (6.3-8.2)
[2017-04-10] MEDS ORDERED: NORMAL SALINE 500 ML IV PRN (17:18)
--- NOTE | 2017-04-10 17:18 | ER Document Report ---
ED General Pain - General Chief Complaint: Flank Pain Stated Complaint: BACK PAIN Time Seen by Provider: 04/10/17 15:20 Notes: Patient is a 28-year-old male who returns emergency department complaining of chest pain. Patient was evaluated here at 8 AM this morning for chest pain that was in the front of his chest. Patient states that it started there but now feels worse in the back of his chest. Improves with heat, massage. Patient states it hurts when he takes a deep breath but otherwise denies any chest pain, shortness of breath. Patient states that he has not taken any pain medication prior to return to the emergency department. He denies any heartburn , fever, chills, nausea, vomiting, abdominal pain. Patient admits to using IV steroids TRAVEL OUTSIDE OF THE [place] IN LAST 30 DAYS: No - Related Data Allergies/Adverse Reactions: Penicillins Allergy (Verified 04/10/17 15:22) Past Medical History - Social History Smoking Status: Former Smoker Frequency of alcohol use: Occasional Drug Abuse: Other Family History: Reviewed & Not Pertinent Patient has suicidal ideation: No Patient has homicidal ideation: No - Past Medical History Cardiac Medical History: Reports: Hx Hypertension Renal/ Medical History: Denies: Hx Peritoneal Dialysis GI Medical History: Reports: Hx Diverticulitis Past Surgical History: Reports: Hx Bowel Surgery - Colectomy, Hx Colostomy - Immunizations Hx Diphtheria, Pertussis, Tetanus Vaccination: Yes - 2014 Review of Systems - Review of Systems Constitutional: No symptoms reported Cardiovascular: See HPI Respiratory: See HPI Gastrointestinal: No symptoms reported Musculoskeletal: See HPI -: Yes All other systems reviewed and negative Physical Exam - Vital signs Vitals: Temp Pulse Resp BP Pulse Ox 98.9 F 85 20 129/69 H 97 04/10/17 14:58 04/10/17 14:58 04/10/17 14:58 04/10/17 14:58 04/10/17 14:58 - Notes Notes: PHYSICAL EXAM GENERAL: Alert, interacts well. HEAD: Normocephalic, atraumatic. EYES: Pupils equal, round, and reactive to light. Extraocular movements intact. ENT: Oral mucosa moist, tongue midline. NECK: Full range of motion. Supple. Trachea midline. LUNGS: Clear to auscultation bilaterally, no wheezes, rales, or rhonchi. No respiratory distress. Patient admits to tenderness overlying the sixth and seventh intercostal space but improves with massage. HEART: Regular rate and rhythm. No murmurs, gallops, or rubs. ABDOMEN: Soft, nondistended, nontender. No guarding, rebound, or rigidity.. Bowel sounds present in all 4 quadrants. EXTREMITIES: Moves all 4 extremities spontaneously. No edema, radial and dorsalis pedis pulses 2/4 bilaterally. No cyanosis. NEUROLOGICAL: Alert and oriented x4. Normal speech. PSYCH: Normal affect, normal mood. SKIN: Warm, dry, normal turgor. No rashes or lesions noted. Course - Re-evaluation Re-evalutation: 04/10/17 1630 Patient is a 36-year-old male who returns emergency department complaining of pleuritic chest pain. Patient states that this improves with Toradol, heat and massage. No evidence of murmur, fever. Review of labs show mild leukocytosis without left shift. Negative troponins, no electrolyte abnormalities, renal/ hepatic, pancreatic dysfunction. Case discussed with supervising physician Dr. Rodriguez who evaluated him at 8 this morning who agrees that his presentation is still consistent with musculoskeletal causes. Discussed with patient for aggressive hydration at home as well is NSAIDs and to follow-up with primary care. Patient given strict return precautions. Patient and family at bedside agree with plan. Given the patient still does not present with murmur, EKG changes or cardiac enzyme abnormalities, low clinical suspicion for pericarditis or endocarditis. Blood cultures were sent as a precaution and results pending. CTA was negative for any septic emboli, mediastinal infiltration, pericardial infiltration. - Vital Signs Vital signs: Temp Pulse Resp BP Pulse Ox 98.5 F 78 22 H 158/87 H 99 04/10/17 18:11 04/10/17 18:11 04/10/17 18:11 04/10/17 18:11 04/10/17 18:11 - Laboratory Result Diagrams: 04/10/17 16:01 04/10/17 16:01 Laboratory results interpreted by me: 04/10/17 04/10/17 16:01 16:01 WBC 15.6 H Seg Neutrophils % 81.8 H Lymphocytes % 8.6 L Absolute Neutrophils 12.8 H Sodium 136.4 L Direct Bilirubin 0.5 H AST 123 H ALT 324 H - Diagnostic Test Radiology reviewed: Image reviewed, Reports reviewed - EKG Interpretation by Me EKG shows normal: Sinus rhythm Rate: Normal Rhythm: NSR When compared to previous EKG there are: No significant change Discharge - Discharge Clinical Impression: Chest pain Condition: Good Disposition: HOME, SELF-CARE Additional Instructions: Please take your medications you were discharged with this morning Please drink clear fluids aggressively and take NSAID's as needed for pain CHEST PAIN OF UNCLEAR CAUSE: The exact cause of your chest pain isn't clear. Fortunately, there is no evidence of a dangerous medical condition. Further testing may be required to find the source of the pain. Most often, we find that this pain is coming from the chest wall -- the muscles or rib joints in the chest. But chest pain can come from the lung and lung lining, the esophagus, the heart valves or heart lining, and even the stomach or gallbladder. Rest. Eat lightly until the pain is gone. We may prescribe medicine for pain and inflammation. You should call the physician immediately if the pain radiates to the shoulder, jaw or arms; if you start to run a fever or develop a cough; or if you develop shortness of breath, or other new or alarming symptoms. NORMAL EXAM AND WORKUP: At this time, your examination and workup show no significant abnormality. No significant abnormal physical findings were noted. All laboratory, EKG, and imaging (x-ray, CT scans, ultrasound) studies that were ordered show no significant abnormality. Although your examination and all studies that were ordered showed no significant abnormal finding, there are no examinations and no studies that are 100% accurate. There is always the possibility that some abnormality could exist and not be detected with physical examination or within the limits and capabilities of laboratory and other studies. You should return or follow up as you were instructed on your visit today for further evaluation if your symptoms do not resolve. CHEST WALL PAIN: Your chest pain may be coming from the chest wall. This is often caused by straining the muscles or joints in the chest during physical activity, direct trauma, coughing, or vigorous vomiting. Persons with arthritis are especially prone to this type of pain, due to inflammation of the cartilage joints near the breast bone. Occasionally, no cause can be found. Rest from strenuous physical activity. This kind of chest pain is usually made worse by movement of the chest. Depending on the symptoms, we may prescribe medicine for pain, muscle relaxation, and antiinflammatory effects. If the pain is new, and seems to be due to muscle strain, cold packs can help. Otherwise, apply gentle warmth to the painful area for 15 minutes every hour or two. You should call contact the doctor immediately if things change. Further evaluation is needed if you develop a fever or cough, if the nature of the pain changes, or if you become short of breath. FOLLOW-UP CARE: If you have been referred to a physician for follow-up care, call the physician s office for an appointment as you were instructed or within the next two days. If you experience worsening or a significant change in your symptoms, notify the physician immediately or return to the Emergency Department at any time for re-evaluation. Referrals: JAIME HOLLINGSWORTH MD [ACTIVE STAFF] - Follow up in 3-5 days
[2017-04-10 18:13] VITALS: BP 158/87
== END 2017-04-10 18:10 | disposition home or self-care (01) ==
LOC: ER 14:48
DX: R10.9 Unspecified abdominal pain (principal); M54.9 Dorsalgia, unspecified; R07.9 Chest pain, unspecified; I10 Essential (primary) hypertension; Z88.0 Allergy status to penicillin; Z87.891 Personal history of nicotine dependence; Z93.3 Colostomy status
CPT/HCPCS: 99284; 36415; 87040; 85025; 87077; 80053; 84484; 87186; 71020; J1885